=== PATIENT | female | born 1990 | race Caucasian/White ===

== ENCOUNTER 2016-11-07 12:15 | Emergency (ER) | payer SELFPAY ==
--- NOTE | ~2016-11-07 | ER ---
PATIENT'S NAME: MERRILL ZHUILA Baldo [facility] AGE: 26 Y [address] ROOM: [place] [id number] LOCATION: [facility] ADMIT DATE: 11/07/2016 ER/Outpatient Report DISCHARGE DATE: 11/07/2016 FAMILY PHYSICIAN: Nakita Guidry MD ATTENDING PHYSICIAN: Kristyn Kim Time of Patient's Arrival: 1215 hours. Time of Patient's Evaluation: 1240 hours. CHIEF COMPLAINT: Fever, sore throat. HISTORY OF PRESENT ILLNESS: This is a 26-year-old female who presents to the ER with fever that started 1 week ago. She states she is also having a sore throat with this and a dry cough. She has had nausea, she did vomit once as well, and she believes she has had a fever up to 103.6 degrees at home. She did take some Tylenol and ibuprofen today. She had some left over cephalexin that she started as well. She states that she has a lot of nasal congestion and is not feeling any better. ALLERGIES: PENICILLIN. MEDICATIONS: Cephalexin. PAST MEDICAL HISTORY: Negative. PAST SURGERIES: , tonsillectomy, and cholecystectomy. SOCIAL HISTORY: She smokes a 4th of a pack a day. Denies any drug or alcohol use. REVIEW OF SYSTEMS: CONSTITUTIONAL: She denies any change in weight or fatigue. HEENT: She has a lot of nasal congestion, sore throat. RESPIRATORY: She has had dry cough. No troubles breathing. GASTROINTESTINAL: She has had nausea and vomiting. No diarrhea. SKIN: No lesions or rashes. PHYSICAL EXAMINATION: VITAL SIGNS: Weight 140 kg taken, blood pressure is 152/88, pulse 99, PATIENT'S NAME: DONNY ZHU [facility] AGE: 26 Y [address] ROOM: [place], [place] [address] LOCATION: [facility] ADMIT DATE: 11/07/2016 ER/Outpatient Report DISCHARGE DATE: 11/07/2016 FAMILY PHYSICIAN: Nakita Guidry MD ATTENDING PHYSICIAN: Kristyn Kim respirations 20, temperature 97.6 degrees tympanically, and saturations 95% on room air. William Coma Score is 15. GENERAL: Alert, morbidly obese female, in no acute distress. She does, however, look like she does not feel well. HEENT: Head: Normocephalic. Eyes: Pupils are equal and reactive to light. Ears: TMs display good light reflexes bilaterally. Nose: Turbinates pink with purulent drainage. Throat has erythema. No exudates. NECK: Supple. No lymphadenopathy. LUNGS: Clear to auscultation bilaterally. HEART: Regular rate and rhythm. EXTREMITIES: No clubbing, cyanosis, or edema with full range of motion of all limbs. LABORATORY DATA AND X-RAYS: None were done. IMPRESSION: 1. Sinusitis. 2. Pharyngitis. ASSESSMENT AND PLAN: We will dismiss the patient home with a prescription for Z-Silvino to use as directed. She is to continue to push fluids. She may take Mucinex over-the- counter. She should take Tylenol or ibuprofen as needed for symptom control. I did provide her with a work note for the weekend, and she needs to follow up with her primary care physician if she does not improve. The patient understands and agrees with care. STANISLAW ESTRADA PA-C FOR [facility]CLA[facility]/leatha /[id number] d: 11/08/16 0110 t: 11/11/16 0913, OUTPATIENT REPORT
== END 2016-11-07 12:52 | disposition disaster alternative care site (69) ==
LOC: GMED 12:15
DX: J32.9 Chronic sinusitis, unspecified (principal); J02.9 Acute pharyngitis, unspecified; F17.210 Nicotine dependence, cigarettes, uncomplicated; Z90.49 Acquired absence of other specified parts of digestive tract; Z90.89 Acquired absence of other organs; Z88.0 Allergy status to penicillin